=== PATIENT | female | born 1985 | race Caucasian/White ===

== ENCOUNTER 2019-01-25 23:01 | Emergency (ER) | payer OTHER, MEDICAID ==
[~2019-01-25] VITALS: Ht 172.7 cm; Wt 68.0 kg
[2019-01-26] MEDS ORDERED: MEDROL DOSPAK21 TA1 PO (00:27)
[2019-01-26 00:38] VITALS: BP 150/100
== END 2019-01-26 00:38 | disposition home or self-care (01) ==
LOC: M.ERS 23:01
DX: M54.5 Low back pain (principal); F17.210 Nicotine dependence, cigarettes, uncomplicated

== ENCOUNTER 2020-10-17 02:09 | Emergency (ER) | payer OTHER, MEDICAID ==
[~2020-10-17] VITALS: Ht 170.2 cm; Wt 72.6 kg
[~2020-10-17 02:09] MED LIST: MEDROL DOSPAK21 TA1 PO
[2020-10-17 02:42] LABS: HEMATOCRIT 45.3 % (37.0-47.0); HEMOGLOBIN 15.3 gm/dL (12.0-15.0); MCH 30.5 pg (26.0-34.0); MCHC 33.8 g/dL (28.0-37.0); MCV 90.3 fL (80.0-100.0); MPV 9.8 fl. (7.2-11.1); NUCLEATED RBCS 0 /100WBC; PLATELET COUNT* 224 thou/uL (150-400); RBC 5.01 mil/uL (4.20-5.00); RDW-CV 12.9 % (10.5-14.5); WBC 13.1 thou/uL (4.0-11.0)
[2020-10-17 02:46] LABS: CALCIUM 8.9 mg/dL (8.5-10.1); CREATININE 0.8 mg/dL (0.6-1.3)
[2020-10-17] MEDS ORDERED: HYDROCODON-ACE1 EAC8 PO (02:46)
[2020-10-17] MEDS ORDERED: KEFLEX500 M1 PO (02:46)
[2020-10-17 02:48] LABS: POTASSIUM 2.8 mmol/L (3.5-5.1)
[2020-10-17 02:50] LABS: URINE BILIRUBIN NEGATIVE (Negative); URINE BLOOD 2+ (Negative); URINE CLARITY CLEAR; URINE COLOR YELLOW; URINE GLUCOSE-RANDOM NEGATIVE (Negative); URINE KETONES NEGATIVE (Negative); URINE LEUKOCYTES-REFLEX NEGATIVE (Negative); URINE NITRITE-REFLEX NEGATIVE (Negative); URINE PROTEIN NEGATIVE (Negative); URINE SPECIFIC GRAVITY >= 1.030 (1.005-1.030); URINE UROBILINOGEN 0.2 E.U./dl (0.2-1.0)
[2020-10-17 02:51] LABS: ALBUMIN 4.1 g/dL (3.4-5.0); TOTAL BILIRUBIN 0.4 mg/dL (<0.1-1.0); TOTAL PROTEIN 7.3 g/dL (6.4-8.2)
[2020-10-17] MEDS ORDERED: DIFLUCAN150 MG PO (02:53)
[2020-10-17 03:17] LABS: CASTS None Seen /LPF (None Seen); SQUAMOUS >10 Many /LPF (0-3)
[2020-10-17 03:18] LABS: CRYSTALS None Seen /LPF (None Seen); URINE RBC 3-10 Few /HPF (0-2); URINE WBC-REFLEX 0-5 Rare /HPF (0-5)
[2020-10-17 04:00] LABS: ABSOLUTE LYMPHOCYTES 1.3 thou/uL (0.8-5.3); ABSOLUTE MONOCYTES 0.5 thou/uL (0.0-1.2); ABSOLUTE NEUTROPHILS 11.3 thou/uL (1.6-8.1); PLATELET ESTIMATE ADEQUATE
[2020-10-17 04:01] LABS: LARGE PLATELETS OCCASIONAL
[2020-10-17] MEDS ORDERED: ZOFRAN ODT4 MG PO (04:25)
[2020-10-17 04:42] VITALS: BP 119/64
--- NOTE | 2020-10-17 13:23 | EKG ---
[place] [address] ELECTROCARDIOGRAM REPORT Name: MARTHA SYED [id number] Admission: 10/17/20 Attend Phys: Discharge: 10/17/20 Date of : 85 Date of Service: 10/17/20338 Report #: [id number] THIS REPORT FOR: //name// [facility] ED Test Date: 2020-10-17 Test Time: 03:39:07 Pat Name: MARTHA SYED Department: Room: Gender: F Dental Service Chief: MR : 1985 Requested By: Keisha Pardo Order Number: [id number] Kathryn MD: Missael Rutledge Measurements Intervals [place] Rate: 92 P: 47 W[place]: 118 QRS: 59 QRSD: 88 T: 32 QT: 335 QTc: 415 Interpretive Statements Sinus rhythm Borderline short [place] interval No previous ECG available for comparison Electronically Signed On 10-17-2020 13:23:20 [employer] by Missael Rutledge [email or web address] <ELECTRONICALLY SIGNED> By: Missael Rutledge MD, [facility] 10/17/20 1323 D: [id number] Missael Rutledge MD, FACC /EPI
== END 2020-10-17 04:43 | disposition home or self-care (01) ==
LOC: M.ERS 02:09
PROVIDERS: Emergency Medicine
DX: N61.0 Mastitis without abscess (principal)